=== PATIENT | male | born 1955 | race Caucasian/White ===

== ENCOUNTER 2016-11-11 07:57 | Inpatient (IN) | payer BC ==
[~2016-11-11] VITALS: Ht 172.7 cm; Wt 64.0 kg
[~2016-11-11 07:57] MED LIST: AMBIEN10 MG PO; Ambien PO; BACTRIM,SEPT1 TABLET PO; BYSTOLIC5 MG PO; Bystolic PO; COUMADIN,JANTOVE2 MG PO; CRESTOR40 MG PO; DALIRESP500 MCG PO; DIGOX125 MCG PO; DIGOXIN250 MCG PO; DIOVAN160 MG PO; DIOVAN80 MG PO; FUROSEMIDE40 MG PO; FUROSEMIDE80 MG PO; K-DUR10 ME1 PO; KEFLEX500 MG PO; LANOXIN,DIGI0.125 MG PO; LASIX80 MG PO; LEVOFLOXACIN500 MG PO; LOPRESSOR25 MG PO; LOSARTAN POTASS50 MG PO; LYRICA150 MG PO; LYRICA75 MG PO; Lanoxin,Digitek PO; Lasix PO; Levaquin PO; METOPROLOL SUCC50 MG PO; METOPROLOL TART25 MG PO; MICRO-K10 ME2 PO; NAPROSYN500 MG PO; NITROSTAT0.3 MG SL; OXYCONTIN20 MG PO; OxyCONTIN PO; POTASSIUM CHLO10 ME3 PO; PRADAXA150 MG PO; PREDNISONE TAPER PO; PREDNISONE10 MG PO; PREDNISONE20 MG PO; PREVACID30 MG PO; PROVENTIL,2.5 MG/3 M IH; Pradaxa PO; SOTALOL120 MG PO; SPIRIVA1 INHALATI IH; SYMBICORT; SYMBICORT60 INHALAT IH; URELLE,DARPA1 TABLET PO; VENTOLIN HFA18 GM IH; ZETIA10 MG PO; ZOLPIDEM TARTRA10 MG PO; Zetia PO
[2016-11-11 08:16] LABS: BASOPHIL COUNT 0.1 K/uL (0-0.1); EOSINOPHIL (%) 2.3 % (0-5); EOSINOPHIL COUNT 0.3 K/uL (0-0.3); HEMATOCRIT 47.6 % (38.0-50.0); IMMATURE GRANULOCYTE (%) 0.3 % (0.0-0.7); INSTRUMENT ABS NEUTROPHIL CT 10.2 K/uL; LYMPHOCYTE COUNT 1.3 K/uL (1.0-2.8); MCH 31.2 PG (29.0-34.0); MCHC 31.7 G/DL (30.0-36.0); MCV 98.3 FL (86-99); MEAN PLAT.VOLUME 9.9 uM^3 (9.0-12.4); MONOCYTE (%) 8.1 % (3-12); MONOCYTE COUNT 1.1 K/uL (0-0.8); NEUTROPHIL (%) 78.8 % (45-76); NEUTROPHIL COUNT 10.2 K/uL (1.8-6.4); PLATELET COUNT 206 K/uL (156-360); RBC DIS.WIDTH-SD 54.4 % (39-53); RED BLOOD COUNT 4.84 M/uL (4.00-5.50)
[2016-11-11 08:25] LABS: INTER. NORMALIZED RATIO 1.2; PTT 29.4 (25-32)
[2016-11-11 08:26] LABS: CHLORIDE 103 mEq/L (99-109); POTASSIUM 4.7 mEq/L (3.7-5.4); SODIUM 140 mEq/L (136-147)
[2016-11-11 08:28] LABS: GLUCOSE 174 mg/dL (70-99)
[2016-11-11 08:29] LABS: ANION GAP 10 MEQ/L (2-14)
[2016-11-11 08:29] LABS: BASE EXCESS 0 mEq/L (-3 to +3); BICARBONATE 27.9 mEq/L (22-26); CARBOXY HGB 2.3 % (0-5); COMMENTS - BLOOD GASES A+C+; DEVICE PB 840 MASK VENT; FI02 100 %; MODE SPONT; PCO2 58 mm Hg (35-45); PO2 506 mm Hg (80-100); SITE RR
[2016-11-11 08:30] LABS: PEEP 7.5 CM/H20; PRES. SUPPORT 12 CM/H2O; TOTAL RESP RATE 13 resp/min
[2016-11-11 08:32] LABS: GFR ESTIMATE (CALCULATED) > 59 mL/min/
[2016-11-11 08:33] LABS: UREA NITROGEN (BUN) 15 mg/dL (9-23)
[2016-11-11 08:35] LABS: pH 7.29 (7.35-7.45)
[2016-11-11 08:39] LABS: TROP-I INTERPRETATION NEGATIVE; TROPONIN-I 0.08 ng/mL (0.0-0.30)
[2016-11-11 08:41] LABS: DIGOXIN 1.5 ng/mL (0.8-2.0)
[2016-11-11] MEDS ORDERED: LASIX80 MG PO ×2 (10:57→11:04)
[2016-11-11] MEDS ORDERED: SPIRONOLACTONE25 MG PO (11:01)
[2016-11-11 11:11] LABS: BASE EXCESS 6.5 mEq/L (-3 to +3); BICARBONATE 32.4 mEq/L (22-26); CARBOXY HGB 2.6 % (0-5); COMMENTS - BLOOD GASES A+C+; DEVICE NC; METHEMOGLOBIN 0.9 % (0-1.5); O2 FLOW 4 L/MIN; PCO2 50 mm Hg (35-45); PO2 68 mm Hg (80-100); SITE RR; TOTAL RESP RATE 15 resp/min; pH 7.42 (7.35-7.45)
[2016-11-11 15:20] VITALS: BP 114/62
[2016-11-11 20:10] VITALS: BP 109/58
[2016-11-11 22:52] VITALS: BP 114/61
[2016-11-12 04:05] VITALS: BP 110/60
[2016-11-12 06:39] LABS: HEMATOCRIT 44.9 % (38.0-50.0); MCH 30.8 PG (29.0-34.0); MCHC 32.5 G/DL (30.0-36.0); MCV 94.7 FL (86-99); MEAN PLAT.VOLUME 10.7 uM^3 (9.0-12.4); PLATELET COUNT 200 K/uL (156-360); RBC DIS.WIDTH-CV 14.8 % (11.8-14.6); RED BLOOD COUNT 4.74 M/uL (4.00-5.50)
[2016-11-12 07:01] LABS: ANION GAP 8 MEQ/L (2-14); CHLORIDE 94 MEQ/L (99-109); GFR ESTIMATE (CALCULATED) > 59 mL/min/; GLUCOSE 105 mg/dL (70-99); POTASSIUM 3.8 MEQ/L (3.7-5.4); SAMPLE HEMOLYSIS CHECK 0; SAMPLE ICTERIC CHECK 0; SAMPLE LIPEMIA CHECK 0; SODIUM 138 MEQ/L (136-147); UREA NITROGEN (BUN) 21 mg/dL (9-23)
[2016-11-12 08:18] VITALS: BP 109/62
[2016-11-12 11:00] LABS: COLOR YELLOW ((YELLOW)); GLUCOSE (STRIP) NEGATIVE; KETONES NEGATIVE; LEUKOCYTES NEGATIVE; NITRITE NEGATIVE; PROTEIN (STRIP) NEGATIVE; SPECIFIC GRAVITY 1.008 (1.000-1.030); UROBILINOGEN 0.2 MG/DL (0.2-1.0)
[2016-11-12 11:01] LABS: ADD MIUA? NO; BILIRUBIN NEGATIVE; BLOOD NEGATIVE; UCUL ADDED? NO
[2016-11-12 12:19] VITALS: BP 112/59
[2016-11-12 16:04] VITALS: BP 100/57
[2016-11-12 19:38] VITALS: BP 118/61
[2016-11-13 00:30] VITALS: BP 98/53
[2016-11-13 04:54] VITALS: BP 101/51
[2016-11-13 07:50] VITALS: BP 105/59
[2016-11-13 09:22] LABS: HEMATOCRIT 42.8 % (38.0-50.0); MCH 30.9 PG (29.0-34.0); MCHC 32.5 G/DL (30.0-36.0); MCV 95.1 FL (86-99); MEAN PLAT.VOLUME 10.3 uM^3 (9.0-12.4); PLATELET COUNT 186 K/uL (156-360); RBC DIS.WIDTH-CV 15.3 % (11.8-14.6); RBC DIS.WIDTH-SD 53.6 % (39-53); WHITE BLOOD COUNT 11.7 K/uL (4.1-10.2)
[2016-11-13 09:46] LABS: ANION GAP 8 MEQ/L (2-14); CHLORIDE 96 MEQ/L (99-109); GFR ESTIMATE (CALCULATED) > 59 mL/min/; GLUCOSE 82 mg/dL (70-99); POTASSIUM 4.5 MEQ/L (3.7-5.4); SAMPLE HEMOLYSIS CHECK 0; SAMPLE ICTERIC CHECK 0; SAMPLE LIPEMIA CHECK 0; SODIUM 139 MEQ/L (136-147); UREA NITROGEN (BUN) 29 mg/dL (9-23)
[2016-11-13 11:39] VITALS: BP 102/57
[2016-11-13 12:50] VITALS: BP 112/66
== END 2016-11-13 14:00 | disposition home or self-care (01) | DRG 189 ==
LOC: EME → EDBD 07:57 → EME 07:57 → 4EAST 11:18 → EDOF 11:18 → 4EAST 12:59
PROVIDERS: Emergency Medicine; Internal Medicine; Physician Assistant
PROC: 5A09357 Assistance with Respiratory Ventilation, Less than 24 Consecutive Hours, Continuous Positive Airway Pressure (ICD-10-PCS; principal; 2016-11-11)
DX: J96.21 Acute and chronic respiratory failure with hypoxia (principal); I50.21 Acute systolic (congestive) heart failure; I10 Essential (primary) hypertension; I25.5 Ischemic cardiomyopathy; I48.2 Chronic atrial fibrillation; I47.2 Ventricular tachycardia; J44.1 Chronic obstructive pulmonary disease with (acute) exacerbation; Z95.810 Presence of automatic (implantable) cardiac defibrillator; I25.10 Atherosclerotic heart disease of native coronary artery without angina pectoris; Z95.1 Presence of aortocoronary bypass graft; Z87.891 Personal history of nicotine dependence; E78.5 Hyperlipidemia, unspecified; Z99.81 Dependence on supplemental oxygen; I83.893 Varicose veins of bilateral lower extremities with other complications; I87.2 Venous insufficiency (chronic) (peripheral); I49.3 Ventricular premature depolarization; D72.829 Elevated white blood cell count, unspecified; I25.2 Old myocardial infarction; Z66 Do not resuscitate
CPT/HCPCS: 36600; 71010; 80048; 80162; 81003; 82803; 83880; 84484; 85025; 85027; 85610; 85730; 93005; 93971; 94002; 94640; 94640 76; 94799; 99202; 99281; 99285; J0461; J1100; J1940; J7644

== ENCOUNTER 2017-07-31 23:25 | Inpatient (IN) | payer BC ==
[~2017-07-31] VITALS: Ht 180.3 cm; Wt 73.0 kg
[~2017-07-31 23:25] MED LIST changes: +SPIRONOLACTONE25 MG PO
[2017-08-01 00:50] LABS: HEMATOCRIT 42.3 % (38.0-50.0); HEMOGLOBIN 13.3 G/DL (12.5-16.6); MCH 32.2 PG (29.0-34.0); MCHC 31.4 G/DL (30.0-36.0); MCV 102.4 FL (86-99); NRBC (%) 0.2 /100 WBC (0-0); PLATELET COUNT 102 K/uL (156-360); RBC DIS.WIDTH-CV 16.1 % (11.8-14.6); RBC DIS.WIDTH-SD 60.3 % (39-53); RED BLOOD COUNT 4.13 M/uL (4.00-5.50)
[2017-08-01 01:02] LABS: ALBUMIN 3.6 g/dL (3.2-4.8); CHLORIDE 100 mEq/L (99-109); SODIUM 142 mEq/L (136-147)
[2017-08-01 01:05] LABS: TOTAL PROTEIN 5.9 g/dL (6.4-8.3)
[2017-08-01 01:06] LABS: TOTAL BILIRUBIN 2.4 mg/dL (0.0-1.0)
[2017-08-01 01:07] LABS: INTER. NORMALIZED RATIO 1.9
[2017-08-01 01:08] LABS: ALKALINE PHOSPHATASE 107 IU/L (3-129); CREATININE 3.1 mg/dL (0.6-1.3); GFR ESTIMATE (CALCULATED) 22 mL/min/ (58.99-99999)
[2017-08-01 01:09] LABS: UREA NITROGEN (BUN) 53 mg/dL (9-23)
[2017-08-01 01:10] LABS: AST (GOT) 948 IU/L (2-34)
[2017-08-01 01:10] LABS: PTT 37.1 SEC (25-37)
[2017-08-01 01:11] LABS: ALT (GPT) 833 IU/L (3-49); LIPASE 15 U/L (1.0-51.0)
[2017-08-01 01:16] LABS: GLUCOSE 39 mg/dL (70-99)
[2017-08-01 01:43] LABS: DIGOXIN 2.4 ng/mL (0.8-2.0)
[2017-08-01 08:29] LABS: THYROTROPIN (TSH) 6.5 MIU/L (0.4-5.5)
[2017-08-01 16:57] VITALS: BP 88/47
== END 2017-08-01 17:02 | disposition hospice, home (50) | DRG 871 ==
LOC: EME 23:25 → CANRESERV 08-01 → ENRESERV 08-01 → EDOF 08-01 05:12 → ENRESERV 08-01 05:25 → EDOF 08-01 17:02
PROVIDERS: Emergency Medicine
DX: A41.9 Sepsis, unspecified organism (principal); R65.21 Severe sepsis with septic shock; R57.0 Cardiogenic shock; J96.90 Respiratory failure, unspecified, unspecified whether with hypoxia or hypercapnia; K72.90 Hepatic failure, unspecified without coma; N17.9 Acute kidney failure, unspecified; Z66 Do not resuscitate; Z51.5 Encounter for palliative care; I11.0 Hypertensive heart disease with heart failure; J18.9 Pneumonia, unspecified organism; I50.9 Heart failure, unspecified; E87.2 Acidosis; E16.2 Hypoglycemia, unspecified; I25.5 Ischemic cardiomyopathy; E78.5 Hyperlipidemia, unspecified; I25.10 Atherosclerotic heart disease of native coronary artery without angina pectoris; I25.2 Old myocardial infarction; I42.0 Dilated cardiomyopathy; I48.91 Unspecified atrial fibrillation; F32.9 Major depressive disorder, single episode, unspecified; F41.9 Anxiety disorder, unspecified; R00.1 Bradycardia, unspecified; R23.0 Cyanosis; R74.0 Nonspecific elevation of levels of transaminase and lactic acid dehydrogenase [LDH]; J43.9 Emphysema, unspecified; Z87.891 Personal history of nicotine dependence; Z95.810 Presence of automatic (implantable) cardiac defibrillator; Z95.1 Presence of aortocoronary bypass graft; Z95.5 Presence of coronary angioplasty implant and graft
CPT/HCPCS: 36600; 71045; 80053; 80162; 81003; 82803; 82948; 83605; 83690; 83880; 84443; 85027; 85379; 85610; 85730; 87040; 93005; 94799; 99202; 99281; 99285; J1265; J1940; J2060; J2270; J2543; J3010; J3260; J3370; J7030; J7050